=== PATIENT | male | born 1950 | race Caucasian/White ===

== ENCOUNTER → 2020-06-02 | Outpatient (CLI) | payer MEDICARE | LOC: LAB 12:55 | PROVIDERS: ATTEND Nurse Anesthetist, Certified Registered | DX: Z01.812 Encounter for preprocedural laboratory examination (principal); Z85.038 Personal history of other malignant neoplasm of large intestine; Z20.828 Contact with and (suspected) exposure to other viral communicable diseases | CPT/HCPCS: U0003-CS ==

== ENCOUNTER → 2020-06-05 | Day surgery (SDC) | payer MEDICARE ==
[~2020-06-05] MED LIST: IV RINGERS SOLUTION,LACTATED 1,000 ML IV SCH; PROPOFOL 10,000 MCG/ML (20ML) VIAL IV ONE
[2020-06-05 14:40] VITALS: BP 139/89
--- NOTE | 2020-06-10 18:13 | PATHOLOGY ---
[facility] Accession Number: [id number] . 01 Material submitted: . PART A: colon - DESCENDING COLON POLYP. Modifiers: descending PART B: colon - DESCENDING COLON POLYP, HOT SNARE. Modifiers: descending . 01 Clinical history: . HX COLON CA . 02 Diagnosis: A. Colon biopsies, descending colon polyp: - Tubular adenoma. . B. Colon biopsy, descending colon polyp hot snare: - Tubular adenoma. (JPM:[facility] 06/10/2020) [facility] 06/10/2020 0910 Local . 02 Comment: There is no high-grade dysplasia or evidence of malignancy. (JPM:[facility] 06/10/2020) . 02 Electronically signed: . Ziyad Wilder MD, Pathologist NPI- [id number] . 01 Gross description: . A. The specimen is received in formalin, labeled "Carver, Colin, descending colon polyp" and consists of multiple fragments of guillen tissue measuring 1.1 x 0.6 x 0.3 cm in aggregate which are entirely submitted in A1. . B. The specimen is received in formalin, labeled "Socorro, Colin, descending colon" and consists of a fragment of guillen tissue measuring 0.5 x 0.3 cm which is entirely submitted in B1. (SDY; 06/09/2020) SYU/SYU 06/09/2020 1053 Local . 02 Pathologist provided ICD-10: D12.4, Z85.038 . 02 CPT . 614970, [id number] Specimen Comment: A courtesy copy of this report has been sent to [phone], [phone] Specimen Comment: [id number] Specimen Comment: Report sent to / DR HERNANDEZ Performed at: [address] [place], [place] [id number] [facility] [address], [place], [place] [id number] MD Faizan Champion MD Phone: [phone] Performed at: [address] [id number] MD Ziyad Wilder MD Phone: [phone]
== END | disposition home or self-care (01) ==
LOC: SURG 11:41
PROVIDERS: ATTEND Internal Medicine Gastroenterology
DX: Z08 Encounter for follow-up examination after completed treatment for malignant neoplasm (principal); D12.4 Benign neoplasm of descending colon; K64.0 First degree hemorrhoids; K57.30 Diverticulosis of large intestine without perforation or abscess without bleeding; K63.89 Other specified diseases of intestine; M19.90 Unspecified osteoarthritis, unspecified site; Z85.038 Personal history of other malignant neoplasm of large intestine; Z87.891 Personal history of nicotine dependence; Z98.890 Other specified postprocedural states
CPT/HCPCS: 45380; 45381; 45385; 88305; J2704; J7120

== ENCOUNTER 2020-10-13 06:47 | Emergency (ER) | payer MEDICAID, MEDICARE ==
[~2020-10-13] VITALS: Ht 175.3 cm; Wt 84.0 kg
[2020-10-13] MEDS ORDERED: ACETAMINOPHEN/CODEINE 300/30MG TABLET PO ONE (07:00)
--- NOTE | 2020-10-13 07:22 | PHYS DOC ---
General Adult EDM: Chief Complaint: RIB PAIN HPI: HPI: Patient is a 70 male brought in by EMS for right rib pain. Patient initially presented to the [facility] [employer] who called EMS. Patient states he fell 2 days ago on some uneven steps and hit his right ribs. Denies any other injuries. Patient admits to current methamphetamine use, but states he has not used for 3 years prior. Patient states he has been drinking and using drugs since his a few years ago. Denies any fevers, vomiting, diarrhea. Patient has had a cough is nonproductive. Patient denies any medical conditions has had multiple surgeries for injuries in the past. Review of Systems: Review of Systems: All other systems within normal limits except for as noted in the HPI Current Medications: Current Meds: Current Medications Medications (Trade) Dose Ordered Sig/Rhys Start Time Stop Time Status Last Admin Dose Admin Acetaminophen/ Codeine Phosphate (Tylenol #3) 1 tab 1X ONCE 10/13/20 07:00 10/13/20 07:01 DC 10/13/20 07:13 1 TAB Lidocaine (Lidoderm) 1 patch DAILY 10/13/20 09:00 UNV Miscellaneous (Lidoderm Patch Removal) 1 ea QHS 10/13/20 21:00 UNV Sodium Chloride 1,000 ml @ 1,000 mls/hr 1X ONCE 10/13/20 07:30 10/13/20 08:29 UNV Allergies: Allergies: Allergies Coded Allergies Type Severity Reaction Last Updated Verified No Known Drug Allergies 05/27/20 No Physical Exam: PE: Constitutional: Well developed, well nourished, no acute distress, non-toxic appearance. [] HENT: Normocephalic, atraumatic, bilateral external ears normal, nose normal. [] Eyes: PERRLA, conjunctiva normal, no discharge. [] Neck: No rigidity, supple, no stridor. [] Cardiovascular: Regular rate and rhythm, brisk cap refill [] Lungs & Thorax: Non labored symmetric respirations, no tachypnea or respiratory distress. Right lateral and posterior rib cage pain. [] Abdomen: Soft, nondistended. Skin: Warm, dry, no erythema, no rash. Ecchymosis to right flank. [] Back: Unremarkable, no step-offs or deformities Extremities: No deformities, range of motion grossly intact, no lower extremity edema [] Neurologic: Alert and oriented X 3, no focal deficits noted. [] Psychologic: Affect normal, judgement normal, mood normal. [] Current Patient Data: Vital Signs: Vital Signs Date Time Temp Pulse Resp B/P (MAP) Pulse Ox O2 Delivery O2 Flow Rate FiO2 10/13/20 07:13 16 94 EKG: EKG: [] Radiology/Procedures: Radiology/Procedures: CT CHEST_ABDOMEN_ AND PELVIS WITHOUT CONTRAST INDICATION: right rib and flank injury COMPARISON: None. TECHNIQUE: Multiple contiguous axial images were obtained throughout the chest, abdomen, and pelvis without the use of IV contrast. Axial images were reformatted into coronal and sagittal planes. One or more of the following dose reduction techniques were utilized: Automated exposure control (AEC), Adjustment of mA and/or kV according to patient size, Use of iterative reconstruction technique such as ASiR, CT scan done according to ALARA and image gently/image wisely. FINDINGS: Chest Findings: The thyroid is symmetric. There is no axillary, mediastinal, or hilar adenopathy, although evaluation of the ramandeep is limited without IV contrast. The thoracic aorta diameter is normal. The cardiac size is normal. Coronary artery atherosclerotic disease. There is no pericardial effusion. The central airways are patent. Lungs are clear. No pleural abnormality. Abdomen findings: Evaluation of solid abdominal viscera is limited without the use of IV contrast. However, the liver, spleen, pancreas, and adrenal glands are unremarkable. Cholecystectomy. The kidneys are unremarkable. There is no significant mesenteric or retroperitoneal adenopathy identified, though evaluation is limited without intravenous contrast. There is no evidence of free intraperitoneal fluid or pneumoperitoneum. Normal caliber large and small bowel. Sigmoid anastomosis. Pelvis findings: The bladder and distal ureters are unremarkable. There is no significant pelvic ascites. No significant iliac or inguinal adenopathy is identified. Nondisplaced right lateral 10th rib fracture. Degenerative changes of the spine. Bilateral total hip arthroplasties. IMPRESSION: 1. Nondisplaced right lateral 10th rib fracture. 2. No evidence of traumatic mediastinal or lung injury. No abdominal solid organ injury.[] Heart Score: Risk Factors: Risk Factors: DM, Current or recent (<one month) smoker, HTN, HLP, family history of CAD, obesity. Risk Scores: Score 0 - 3: 2.5% MACE over next 6 weeks - Discharge Home Score 4 - 6: 20.3% MACE over next 6 weeks - Admit for Clinical Observation Score 7 - 10: 72.7% MACE over next 6 weeks - Early Invasive Strategies Course & Med Decision Making: Course & Med Decision Making Pertinent Labs and Imaging studies reviewed. (See chart for details) Discussed not using methamphetamines or smoking anything with his rib fracture. Labs unremarkable. [] Gavi Disclaimer: Gavi Disclaimer: This electronic medical record was generated, in whole or in part, using a voice recognition dictation system. Departure Departure: Impression: Primary Impression: Right rib fracture Disposition: 01 DC HOME SELF CARE/HOMELESS Condition: STABLE Referrals: TADEO HERNANDEZ (PCP) Patient Instructions: Incentive Spirometer, Rib Fracture Scripts Lidocaine (Lidocaine) 1 Each Adh..patch 1 EACH TP PRN Q12HR PRN for PAIN for 10 Days, #20 PATCH Prov: WILIAM FRENCH MD 10/13/20 Hydrocodone/Acetaminophen (Hydrocodone-Acetamin 5-325 mg) 1 Each Tablet 1 EACH PO PRN Q6-8HRS PRN for PAIN for 5 Days, #15 TAB Prov: WILIAM FRENCH MD 10/13/20 WILIAM FRENCH MD Oct 13, 2020 07:22
[2020-10-13] MEDS ORDERED: IV NORMAL SALINE 1,000ML 1,000 ML IV ONE (07:30)
--- NOTE | 2020-10-13 07:31 | RAD ---
CT CHEST_ABDOMEN_ AND PELVIS WITHOUT CONTRAST INDICATION: right rib and flank injury COMPARISON: None. TECHNIQUE: Multiple contiguous axial images were obtained throughout the chest, abdomen, and pelvis without the use of IV contrast. Axial images were reformatted into coronal and sagittal planes. One or more of th e following dose reduction techniques were utilized: Automated exposure control (AEC), Adjustment of mA and/or kV according to patient size, Use of iterative reconstruction technique such as ASiR, CT sc an done according to ALARA and image gently/image wisely. FINDINGS: Chest Findings: The thyroid is symmetric. There is no axillary, mediastinal, or hilar adenopathy, although evaluatio n of the ramandeep is limited without IV contrast. The thoracic aorta diameter is normal. The cardiac size is normal. Coronary artery atherosclerotic di sease. There is no pericardial effusion. The central airways are patent. Lungs are clear. No pleural abnormality. Abdomen findings: Evaluation of solid abdominal viscera is limited without the use of IV contrast. However, the liver, spleen, pancreas, and adrenal glands are unremarkable. Cholecystectomy. The kidneys are unremarkable . There is no significant mesenteric or retroperitoneal adenopathy identified, though evaluation is limited without intravenous contrast. There is no evidence of free intraperitoneal fluid or pneumope ritoneum. Normal caliber large and small bowel. Sigmoid anastomosis. Pelvis findings: The bladder and distal ureters are unremarkable. There is no significant pelvic ascites. No signifi cant iliac or inguinal adenopathy is identified. Nondisplaced right lateral 10th rib fracture. Degenerative changes of the spine. Bilateral total hip arthroplasties. IMPRESSION: 1. Nondisplaced right lateral 10th rib fracture. 2. No evidence of traumatic mediastinal or lung injury. No abdominal solid organ injury. Electronically signed by: Mustapha Blood MD (10/13/2020 7:29 AM) [id number]
[2020-10-13 07:32] LABS: BASO % 1 % (0-3); EOS # 0.1 x10^3/uL (0.0-0.7); EOS % 1 % (0-3); HEMATOCRIT 45.6 % (39.0-53.0); HEMOGLOBIN 14.9 g/dL (13.0-17.5); LYMPH % 13 % (24-48); MEAN CORPUSCULAR HEMOGLOBIN 31 pg (25-35); MEAN CORPUSCULAR HGB CONC 33 g/dL (31-37); MEAN CORPUSCULAR VOLUME 94 fL (79-100); MONO # 0.6 x10^3/uL (0.0-1.1); MONO % 8 % (0-9); NEUT # 5.7 x10^3uL (1.8-7.7); NEUT % 77 % (31-73); PLATELET COUNT 144 x10^3/uL (140-400); RED BLOOD COUNT 4.83 x10^6/uL (4.30-5.70); RED CELL DISTRIBUTION WIDTH 13.6 % (11.5-14.5); WHITE BLOOD COUNT 7.4 x10^3/uL (4.0-11.0)
[2020-10-13 07:48] VITALS: BP 118/96
[2020-10-13 07:58] LABS: CALCIUM 9.3 mg/dL (8.5-10.1); CREATININE 1.1 mg/dL (0.7-1.3); GFR 66.2; POTASSIUM 3.4 mmol/L (3.5-5.1)
[2020-10-13 08:04] LABS: ALBUMIN 4.1 g/dL (3.4-5.0); ALBUMIN/GLOBULIN RATIO 1.1 (1.0-1.7); TOTAL BILIRUBIN 2.3 mg/dL (0.2-1.0)
[2020-10-13] MEDS ORDERED: LIDO1ADH63 TP (08:21)
[2020-10-13] MEDS ORDERED: HYDR-2759 PO (08:21)
[2020-10-13] MEDS ORDERED: LIDOCAINE (700MG/PATCH) PATCH. TD ONE (09:00)
[2020-10-13] MEDS ORDERED: PATCH REMOVAL. MC SCH (21:00)
== END 2020-10-13 08:30 | disposition home or self-care (01) ==
LOC: ER 06:47
DX: S22.31XA Fracture of one rib, right side, initial encounter for closed fracture (principal); F15.10 Other stimulant abuse, uncomplicated; W10.8XXA Fall (on) (from) other stairs and steps, initial encounter; Y93.89 Activity, other specified; Y92.89 Other specified places as the place of occurrence of the external cause; Y99.8 Other external cause status
CPT/HCPCS: 36415; 71250; 74176; 80053; 83605; 84484; 85025; 85610; 96360; 99285; G0238; G0480; J7030

== ENCOUNTER 2020-11-05 15:36 | Observation (INO) | payer MEDICARE ==
[~2020-11-05] VITALS: Ht 177.8 cm; Wt 81.0 kg
[~2020-11-05 15:36] MED LIST changes: +HYDR-2759 PO; -IV RINGERS SOLUTION,LACTATED 1,000 ML IV SCH; +LIDO1ADH63 TP; -PROPOFOL 10,000 MCG/ML (20ML) VIAL IV ONE
[2020-11-05] MEDS ORDERED: MVI, ADULT NO.4 WITH VIT K 10 ML, FOLIC ACID INJ 1 MG, THIAMINE INJ 100 MG in IV RINGER... IV ONE (16:00)
[2020-11-05 16:29] LABS: BASO % 1 % (0-3); EOS # 0.1 x10^3/uL (0.0-0.7); EOS % 1 % (0-3); HEMATOCRIT 43.7 % (39.0-53.0); HEMOGLOBIN 14.3 g/dL (13.0-17.5); LYMPH # 1.7 x10^3/uL (1.0-4.8); LYMPH % 39 % (24-48); MEAN CORPUSCULAR HEMOGLOBIN 31 pg (25-35); MEAN CORPUSCULAR HGB CONC 33 g/dL (31-37); MEAN CORPUSCULAR VOLUME 95 fL (79-100); MONO # 0.4 x10^3/uL (0.0-1.1); MONO % 8 % (0-9); NEUT # 2.3 x10^3uL (1.8-7.7); NEUT % 51 % (31-73); PLATELET COUNT 150 x10^3/uL (140-400); RED BLOOD COUNT 4.58 x10^6/uL (4.30-5.70); RED CELL DISTRIBUTION WIDTH 14.6 % (11.5-14.5); WHITE BLOOD COUNT 4.5 x10^3/uL (4.0-11.0)
[2020-11-05 16:31] LABS: GFR 73.9; POTASSIUM 4.1 mmol/L (3.5-5.1)
--- NOTE | 2020-11-05 16:43 | EKG ---
[address] [address] Test Date: 2020-11-05 Test Time: 16:36:04 Pat Name: OTIS FUCHS Department: Room: Gender: M Potato Sorter: DRU : 1950 Requested By: JANNA VACA Order Number: [id number] Reading MD: Measurements Intervals [place] Rate: 68 P: 29 GA: 184 QRS: 62 QRSD: 82 T: 56 QT: 380 QTc: 409 Interpretive Statements SINUS RHYTHM ATRIAL PREMATURE COMPLEX(ES) OTHERWISE NORMAL ECG RI6.02 No previous ECG available for comparison
[2020-11-05] MEDS ORDERED: ZIPRASIDONE IM 20 MG VIAL. IM ONE ×2 (17:25→17:30)
[2020-11-05 17:30] LABS: BACTERIA,URINE 0 /HPF (0-FEW); BILIRUBIN,URINE NEG (NEG); CLARITY,URINE CLEAR; COLOR,URINE YELLOW; GLUCOSE,URINE NEG (NEG); NITRITE,URINE NEG (NEG); RBC,URINE 0 /HPF (0-2); SQUAMOUS EPITHELIAL CELL,UR OCC /LPF; UROBILINOGEN,URINE 0.2 mg/dL (0.2 mg/dL); WBC,URINE 0 /HPF (0-4)
--- NOTE | 2020-11-05 18:14 | RAD ---
Exam: CT head and cervical spine without contrast INDICATION: Altered mental status TECHNIQUE: Sequential axial images through the head and cervical spine were obtained without the admi nistration of IV contrast. Comparisons: None FINDINGS: Head: No focal parenchymal lesion or hemorrhage is identified. There is no midline shift or sulcal effaceme nt. Patchy evidence in the periventricular white matter. No acute vascular territory infarction is identi fied. Moeller-white distinction is preserved. The ventricular system is within normal limits without compression hydrocephalus. The basal cisterns are well maintained. The visualized portions of the paranasal sinuses and mastoid air cells are well-pneumatized. No acute fractures. Cervical spine: Straightening of the cervical spine which may be positional. Vertebral body heights are well-maintain ed. Fracture to the cervical spine is not identified. Degenerative disc disease greatest at C5-C6 and C6-C7. Mild bilateral facet arthropathy is also noted . Visualized paraspinal soft tissues are unremarkable. IMPRESSION: 1. Moderate small vessel ischemic change, technically age indeterminate without recent prior imaging . 2. Negative CT C-spine for acute traumatic injury. Exposure: One or more of the following in the visualized dose reduction techniques were utilized for this examination: 1. Automated exposure control 2. Adjustment of the MA and/or KV according to patient size Use of iterative of reconstructive technique Electronically signed by: Natan Bustillo MD (11/05/2020 6:12 PM) [facility]
--- NOTE | 2020-11-05 18:59 | PHYS DOC ---
Past History Past Medical History: Alcoholism, Cancer Past Surgical History: Cancer Surgery, Other Alcohol Use: Heavy Adult General Chief Complaint Chief Complaint: ALCOHOL INTOXICATION HPI HPI Patient is a 70-year-old male presents emergency department brought here by EMS dinner cook transport. Customer Engagement Analyst states patient was lying on the ground when a co ncerned citizen called them for transport to the emergency department. Patient has strong smell of EtOH, is arousable, ambulates with assistance related to unsteady gait. Patient reports he has been drinking whiskey all day, states he drinks whiskey every day, does "other drugs as well like meth and such "ever since my 3 years ago. Patient denies head pain, chest pain, fever or chills, pain to his extremities. Patient denies any physical complaints or physical concerns. Patient states he wants to go home. Patient states she has had several surgeries, patient is unsure if he takes medications or not, patient does not know if he has any allergies or not. Review of Systems Review of Systems 14 body systems of review of systems have been reviewed. See HPI for pertinent positives and negative responses, otherwise all other systems are negative, nonpertinent or noncontributory. Current Medications Current Medications Current Medications Medications (Trade) Dose Ordered Sig/Rhys Start Time Stop Time Status Last Admin Dose Admin Multivitamins/ Minerals 10 ml/ Folic Acid 1 mg/ Thiamine HCl 100 mg/Lactated Ringer's 1,011.3 ml @ 1,011.3 mls/hr 1X ONCE 11/05/20 16:00 11/05/20 16:59 DC 11/05/20 16:00 1,011.3 MLS/HR Ziprasidone (Geodon Im) 20 mg STK-MED ONCE 11/05/20 17:25 11/05/20 17:25 DC Allergies Allergies Allergies Coded Allergies Type Severity Reaction Last Updated Verified No Known Drug Allergies 05/27/20 No Physical Exam Physical Exam Constitutional: Well developed, well nourished, no acute distress, non-toxic appearance. Strong smell of EtOH, found to half pint bottles of whiskey in pocket. HENT: Normocephalic, atraumatic, bilateral external ears normal, oropharynx moist, no oral exudates, nose normal. Eyes: , EOMI, conjunctiva normal, no discharge. Pupils round, prompt reaction to light stimuli, right pupil 4 mm in diameter round, left pupil 3 mm in diameter round. Neck: Normal range of motion, no tenderness, supple, no stridor. Cardiovascular:Heart rate regular rhythm, no murmur, heart sounds S1-S2. Lungs & Thorax: Bilateral breath sounds clear to auscultation [] Abdomen: Bowel sounds normal, soft, no tenderness, no masses, no pulsatile masses. [] Skin: Warm, dry, no erythema, no rash. [] Back: No tenderness, no CVA tenderness. [] Extremities: No tenderness, no cyanosis, no clubbing, ROM intact, no edema. [] Neurologic: Alert and oriented X 3, normal motor function, normal sensory function, no focal deficits noted. [] Psychologic: Affect normal, judgement normal, mood normal. [] Current Patient Data Vital Signs Vital Signs Date Time Temp Pulse Resp B/P (MAP) Pulse Ox O2 Delivery O2 Flow Rate FiO2 11/05/20 15:36 98.3 77 18 115/67 (83) 92 Room Air Lab Results Laboratory Tests Test 11/05/20 15:58 11/05/20 16:58 White Blood Count 4.5 x10^3/uL (4.0-11.0) Red Blood Count 4.58 x10^6/uL (4.30-5.70) Hemoglobin 14.3 g/dL (13.0-17.5) Hematocrit 43.7 % (39.0-53.0) Mean Corpuscular Volume 95 fL (79-100) Mean Corpuscular Hemoglobin 31 pg (25-35) Mean Corpuscular Hemoglobin Concent 33 g/dL (31-37) Red Cell Distribution Width 14.6 % (11.5-14.5) H Platelet Count 150 x10^3/uL (140-400) Neutrophils (%) (Auto) 51 % (31-73) Lymphocytes (%) (Auto) 39 % (24-48) Monocytes (%) (Auto) 8 % (0-9) Eosinophils (%) (Auto) 1 % (0-3) Basophils (%) (Auto) 1 % (0-3) Neutrophils # (Auto) 2.3 x10^3uL (1.8-7.7) Lymphocytes # (Auto) 1.7 x10^3/uL (1.0-4.8) Monocytes # (Auto) 0.4 x10^3/uL (0.0-1.1) Eosinophils # (Auto) 0.1 x10^3/uL (0.0-0.7) Basophils # (Auto) 0.0 x10^3/uL (0.0-0.2) Sodium Level 141 mmol/L (136-145) Potassium Level 4.1 mmol/L (3.5-5.1) Chloride Level 105 mmol/L (98-107) Carbon Dioxide Level 26 mmol/L (21-32) Anion Gap 10 (6-14) Blood Urea Nitrogen 10 mg/dL (8-26) Creatinine 1.0 mg/dL (0.7-1.3) Estimated GFR (Cockcroft-Gault) 73.9 Glucose Level 107 mg/dL (70-99) H Calcium Level 8.0 mg/dL (8.5-10.1) L Creatine Kinase 71 U/L (39-308) Troponin I Quantitative < 0.017 ng/mL (0-0.055) Ethyl Alcohol Level 425 mg/dL (0-10) *H Urine Collection Type Unknown Urine Color Yellow Urine Clarity Clear Urine pH 5.5 Urine Specific [place] <=1.005 Urine Protein Neg (NEG-TRACE) Urine Glucose (UA) Neg mg/dL (NEG) Urine Ketones (Stick) Neg mg/dL (NEG) Urine Blood Neg (NEG) Urine Nitrite Neg (NEG) Urine Bilirubin Neg (NEG) Urine Urobilinogen Dipstick 0.2 mg/dL (0.2 mg/dL) Urine Leukocyte Esterase Neg (NEG) Urine RBC 0 /HPF (0-2) Urine WBC 0 /HPF (0-4) Urine Squamous Epithelial Cells Occ /LPF Urine Bacteria 0 /HPF (0-FEW) EKG EKG EKG performed at 1636 by house respiratory therapy staff, shows heart rate of 68 bpm, normal sinus rhythm with occasional PAC, NC interval 0.184, QTc interval 0.409, no acute STEMI, no ACS, no acute ischemia appreciated. EKG interpreted by ED attending physician Dr. Marks Radiology/Procedures Radiology/Procedures PATIENT: OTIS FUCHS ACCOUNT: [id number] : 1950 LOCATION: ER AGE: 70 SEX: M EXAM STATUS: REG ER ORD. PHYSICIAN: JANNA VACA APRN REASON: ALTERED MENTAL STATUS PROCEDURE: CT HEAD AND CERVICAL SPINE WO Exam: CT head and cervical spine without contrast INDICATION: Altered mental status TECHNIQUE: Sequential axial images through the head and cervical spine were obtained without the administration of IV contrast. Comparisons: None FINDINGS: Head: No focal parenchymal lesion or hemorrhage is identified. There is no midline shift or sulcal effacement. Patchy evidence in the periventricular white matter. No acute vascular territory infarction is identified. Moeller-white distinction is preserved. The ventricular system is within normal limits without compression hydrocephalus. The basal cisterns are well maintained. The visualized portions of the paranasal sinuses and mastoid air cells are well- pneumatized. No acute fractures. Cervical spine: Straightening of the cervical spine which may be positional. Vertebral body heights are well-maintained. Fracture to the cervical spine is not identified. Degenerative disc disease greatest at C5-C6 and C6-C7. Mild bilateral facet arthropathy is also noted. Visualized paraspinal soft tissues are unremarkable. IMPRESSION: 1. Moderate small vessel ischemic change, technically age indeterminate without recent prior imaging. 2. Negative CT C-spine for acute traumatic injury. Exposure: One or more of the following in the visualized dose reduction techniques were utilized for this examination: 1. Automated exposure control 2. Adjustment of the MA and/or KV according to patient size Use of iterative of reconstructive technique Electronically signed by: Natan Mayo MD (11/05/2020 6:12 PM) [facility] DICTATED AND SIGNED BY: NATAN MAYO MD DATE: 11/05/201800 CC: JANNA VACA APRN; TADEO HERNANDEZ ~MTH0 0 Heart Score C/O Chest Pain: No Risk Factors: Risk Factors: DM, Current or recent (<one month) smoker, HTN, HLP, family history of CAD, obesity. Risk Scores: Risk Factors: DM, Current or recent (<one month) smoker, HTN, HLP, family history of CAD, obesity. Course & Med Decision Making Course & Med Decision Making Pertinent Labs and Imaging studies reviewed. (See chart for details) 70-year-old male, vital signs reviewed, presents emergency department transported by local EMS dinner cook for complaints of lying on the ground outside when a concerned citizen wanted him to be in the emergency department instead. Physical examination consistent with acute intoxication. Will draw EtOH level CBC, BMP with hepatic panel, magnesium, phosphorus, CT head and C-spine without contrast, EKG, troponin-I. IV saline lock, LR banana bag IV. automotive paint technician called and reported a blood alcohol level of 425 directly to me. Patient not following commands, would not lay still for CT head and C-spine, patient became agitated, patient was given 10 mg Geodon IM. Patient now calm and cooperative, CT head and C-spine performed. CT head and C-spine negative for acute process, called and discussed patient case with inpatient management Dr. Cardona who agreed to accept patient for admission to [facility] unit for acute alcohol intoxication with the information he received from me. Magnesium and phosphorus were pending at time of consult with Dr. Cardona. Discussed admission to hospital with patient, patient agreed to this planning. Dr. Cardona has assumed patient care at this time. While patient was in ER awaiting bed placement, magnesium and phosphorus levels returned normal, called and updated Dr. Cardona with results, also discussed patient's low calcium level of 8.0, will give 1000 mg IV and 50 mill D5W to go over 10 minutes. Dragon Disclaimer Dragon Disclaimer This electronic medical record was generated, in whole or in part, using a voice recognition dictation system. Departure Departure: Impression: Primary Impression: Acute alcohol intoxication Disposition: ADMITTED INPT THIS HOSP Admitting Physician: Jaycee Cardona (Admit to the MedSurg unit to Dr. CARDONA for acute alcohol intoxication) Condition: STABLE Referrals: TADEO HERNANDEZ (PCP) Problem Qualifiers Primary Impression: Acute alcohol intoxication Complication of substance-induced condition: uncomplicated Qualified Codes: F10.920 - Alcohol use, unspecified with intoxication, uncomplicated JANNA VACA APRN Nov 05, 2020 18:59
[2020-11-05] MEDS ORDERED: IV DEXTROSE 5 %-0.45 % NACL 1,000 ML IV ONE (19:15)
[2020-11-05] MEDS ORDERED: ONDANSETRON PF 4 MG/2 ML VIAL. IVP PRN (19:15)
[2020-11-05 19:20] LABS: BARBITURATES NEG (NEG); BENZODIAZEPINES NEG (NEG); CANNABINOIDS NEG (NEG); COCAINE NEG (NEG); METHADONE NEG (NEG); OPIATES NEG (NEG); PHENCYCLIDINE NEG (NEG)
[2020-11-05 19:23] LABS: ALBUMIN 3.3 g/dL (3.4-5.0); DIRECT BILIRUBIN 0.1 mg/dL (0.0-0.2); TOTAL BILIRUBIN 0.3 mg/dL (0.2-1.0); TOTAL PROTEIN 6.9 g/dL (6.4-8.2)
[2020-11-05 19:32] LABS: AMPHETAMINE/METHAMPHETAMINE NEG (NEG)
[2020-11-05 19:42] LABS: MAGNESIUM 1.9 mg/dL (1.8-2.4); PHOSPHORUS 2.9 mg/dL (2.6-4.7)
[2020-11-05] MEDS ORDERED: CALCIUM CHLORIDE 1,000 MG in IV NORMAL SALINE 50ML 50 ML IV ONE (20:00)
[2020-11-05 22:29] VITALS: BP 146/84
[2020-11-05] MEDS ORDERED: cloNIDine HCL 0.1 MG TABLET PO PRN (23:15)
[2020-11-05] MEDS ORDERED: chlordiazePOXIDE HCL 25 MG CAPSULE PO PRN ×2 (23:15)
[2020-11-05] MEDS ORDERED: diphenhydrAMINE 50 MG/ML VIAL IVP PRN (23:15)
[2020-11-05] MEDS ORDERED: HALOPERIDOL LACT 5 MG/ML VIAL. IM PRN (23:15)
[2020-11-06 05:10] VITALS: BP 161/74
[2020-11-06 06:13] LABS: BASO % 1 % (0-3); EOS % 1 % (0-3); HEMATOCRIT 42.7 % (39.0-53.0); HEMOGLOBIN 14.2 g/dL (13.0-17.5); LYMPH % 23 % (24-48); MEAN CORPUSCULAR HEMOGLOBIN 32 pg (25-35); MEAN CORPUSCULAR HGB CONC 33 g/dL (31-37); MEAN CORPUSCULAR VOLUME 96 fL (79-100); MONO # 0.4 x10^3/uL (0.0-1.1); MONO % 9 % (0-9); NEUT # 2.9 x10^3uL (1.8-7.7); NEUT % 67 % (31-73); PLATELET COUNT 128 x10^3/uL (140-400); RED BLOOD COUNT 4.45 x10^6/uL (4.30-5.70); RED CELL DISTRIBUTION WIDTH 14.7 % (11.5-14.5); WHITE BLOOD COUNT 4.3 x10^3/uL (4.0-11.0)
[2020-11-06 06:30] LABS: ALBUMIN/GLOBULIN RATIO 0.9 (1.0-1.7); CALCIUM 8.1 mg/dL (8.5-10.1); GFR 73.9; POTASSIUM 3.9 mmol/L (3.5-5.1); TOTAL BILIRUBIN 0.5 mg/dL (0.2-1.0); TOTAL PROTEIN 6.5 g/dL (6.4-8.2)
[2020-11-06] MEDS ORDERED: ACETAMINOPHEN 325 MG TABLET PO PRN (08:45)
[2020-11-06] MEDS ORDERED: MVI, ADULT NO.4 WITH VIT K 10 ML, THIAMINE INJ 100 MG, FOLIC ACID INJ 1 MG in IV NORMAL... IV SCH (09:00)
[2020-11-06 10:30] VITALS: BP 146/88
--- NOTE | 2020-11-06 13:25 | SSS ---
ADMIT DATE: 11/05/2020 HISTORY OF PRESENT ILLNESS: The patient is a 70-year-old male patient who was brought to the Emergency Department by EMS [facility]. They stated that the patient was lying on the ground when a concerned citizen called them for transport to the Emergency Department. The patient has strong smell of alcohol. He is arousable, ambulates with assistance related to unsteady gait. He reportedly has been drinking whiskey all day. He states that he drinks whiskey every day, does other drugs as well like meth and such ever since my 3 years ago. The patient denies head pain, chest pain, fever, chills, pain to his extremities. The patient denied any physical complaints or physical concern and stated that he wants to go home. The patient stated that he has had several surgeries. The patient is unsure if he takes medication or not. The patient does not know if he has any allergies or not. He was extensively investigated in the Emergency Room, has had lab work and imaging studies. His lab work showed that his blood alcohol level was high at 425. However, all other drugs were negative. The patient was admitted for observation as he was extremely intoxicated and very unsteady. PAST MEDICAL HISTORY: Unremarkable. PAST SURGICAL HISTORY: Significant for appendectomy and some form of exploratory surgery for cancer that he cannot recollect accurately. ALLERGIES: He has no known drug allergies, currently on no medication. FAMILY HISTORY: Noncontributory. SOCIAL HISTORY: He is . His about 3 years ago. He does not smoke, but drinks alcohol heavily ever since his . 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 He does use also some other drugs like methamphetamine. REVIEW OF SYSTEMS: As per history of present illness. PHYSICAL EXAMINATION: GENERAL: On arrival to the Emergency Room, he looked well and was clearly in no apparent respiratory distress. No pallor, jaundice, cyanosis or thyromegaly. No jugular venous distention or limb edema. VITAL SIGNS: His heart rate was 77, blood pressure was 115/67, temperature was 98.3, respiratory rate was 18, and oxygen saturation was 92%. HEAD, EYES, EARS, NOSE AND THROAT: Normocephalic, atraumatic. NECK: Supple. HEART: Showed normal first and second heart sounds. No gallop or murmur. CHEST: Clear to auscultation. No crepitation or rhonchi. ABDOMEN: Distended, soft, nontender. NEUROLOGIC: On arrival clearly has a strong smell of alcohol, found to have pint bottles of whiskey in his bucket. He was actually oriented to time, place and person; however, he has unsteady gait according to the ER physician. In the Emergency Room, he has had lab work, which showed that his serum sodium was 141, potassium 4.1, chloride 105, bicarbonate 26, anion gap of 10, BUN 10, creatinine 1, estimated GFR was 74 mL per minute. His glucose 107, calcium was 8. His white cell count was 4500, hemoglobin 14, hematocrit 44, MCV 95, and platelet count of 150,000. Urinalysis was essentially unremarkable. Toxic screen showed blood alcohol level at 425. However, the urine was negative for opiates, methadone, barbiturates, phencyclidine, amphetamine, methamphetamine, benzodiazepine, cocaine, and cannabinoids. ASSESSMENT AND PLAN: The patient was admitted and started on a banana bag and apparently was extremely agitated when he was in the Emergency Room requiring ziprasidone intramuscular. He did very well overnight and when I saw him this afternoon, he was resting, slightly propped up in bed, in no apparent distress, awake, alert. On questioning him, he denied any complaint. Nursing staff did not voice any concern. When I examined him, he looked well and was clearly in no apparent respiratory distress. No pallor, jaundice, cyanosis or thyromegaly. No jugular venous distension. No lower limb edema. His heart rate was 74, blood pressure was 145/88, temperature 98.3, respiratory rate 20, and oxygen saturation was 95% on room air. The rest of clinical exam is stable. His blood alcohol level was less than 10 mg. The patient was discharged home to continue with alcohol intoxication. SONIYA SINGER MD DR: TONNY/khang JOB#: [id number] / [id number]
== END 2020-11-06 13:35 | disposition home or self-care (01) ==
LOC: ER 15:36 → INTOOBSV 19:14 → 1 SOUTH 19:14
PROVIDERS: ADMIT Internal Medicine; ATTEND Internal Medicine
DX: F10.129 Alcohol abuse with intoxication, unspecified (principal); Z90.49 Acquired absence of other specified parts of digestive tract; Z85.9 Personal history of malignant neoplasm, unspecified; Z79.899 Other long term (current) drug therapy; Y90.0 Blood alcohol level of less than 20 mg/100 ml
CPT/HCPCS: 36415; 70450; 72125; 80048; 80053; 80076; 80307; 81001; 82550; 83735; 84100; 84484; 85025; 93005; 96361; 96365; 96366; 96367; 96372; 96375; 96376; 99285; G0378; G0480; J2060; J3486; J7030; J7120; G0379

== ENCOUNTER → 2020-12-25 | Emergency (ER) | payer MEDICARE ==
[~2020-12-25] VITALS: Ht 177.8 cm; Wt 81.0 kg
[~2020-12-25] MED LIST changes: +DIPH,PERTUSS(ACELL),TET VAC/PF 0.5 ML SYRINGE. VAX IM ONE
[2020-12-25 21:17] VITALS: BP 146/90
--- NOTE | 2020-12-25 21:28 | PHYS DOC ---
Past History Past Medical History: Alcoholism, Cancer Past Surgical History: Cancer Surgery, Other Alcohol Use: Heavy Adult General Chief Complaint Chief Complaint: LACERATION/AVULSION HPI HPI Patient is a otherwise healthy 7-year-old male presents to the emergency department, after falling. States he was at home, drinking, slipped and fell. Denies hitting his head, head injuries, syncope, changes in vision, head pain, neck pain, chest pain, shortness of breath, abdominal pain, nausea, vomiting, dysuria, hematuria or blood in the stool. Denies any numbness/weakness/tingling. Denies any trouble ambulating. States he fell, got right back up and went out to sit on his porch to continue drinking. States that his neighbor called EMS and told him that they heard something. States that when the ambulance showed up they did give him a choice to actually come to the emergency department, as he did not really want to come but they stated he working to take you into the emergency department so he came. Patient denies any medical complaints at this time and very politely states really need any work-up and would prefer that she called a cab and let me go home. Review of Systems Review of Systems Review of systems otherwise unremarkable except noted in HPI Allergies Allergies Allergies Coded Allergies Type Severity Reaction Last Updated Verified No Known Drug Allergies 05/27/20 No Physical Exam Physical Exam Constitutional: Well developed, well nourished, no acute distress, non-toxic appearance. [] HENT: Normocephalic, atraumatic, bilateral external ears normal, oropharynx moist, no oral exudates, nose normal. [] Eyes: PERRLA, EOMI, conjunctiva normal, no discharge. [] Neck: Normal range of motion, no tenderness, supple, no stridor. [] Cardiovascular:Heart rate regular rhythm, no murmur [] Lungs & Thorax: Bilateral breath sounds clear to auscultation [] Abdomen: Bowel sounds normal, soft, no tenderness, no masses, no pulsatile masses. [] Skin: Warm, dry, a half a centimeter square abrasion at the ulnar side of the anterior wrist. Neurovascular exam intact.] Back: No tenderness, no CVA tenderness. [] Extremities: No tenderness, no cyanosis, no clubbing, ROM intact, no edema. [] Neurologic: Alert and oriented X 3, normal motor function, normal sensory function, no focal deficits noted, able to sit without issue, able to stand walk without issue. [] Psychologic: Affect normal, judgement normal, mood normal. [] EKG EKG [] Radiology/Procedures Radiology/Procedures [] Heart Score C/O Chest Pain: No Risk Factors: Risk Factors: DM, Current or recent (<one month) smoker, HTN, HLP, family history of CAD, obesity. Risk Scores: Risk Factors: DM, Current or recent (<one month) smoker, HTN, HLP, family history of CAD, obesity. Course & Med Decision Making Course & Med Decision Making Patient is a 7-year-old male presents to the emergency department after falling at home after drinking some beers and cutting his wrist Vital signs not concerning. Physical exam noted above. Patient updated on tetanus as he has a small laceration to the right wrist that needs no repair. Wound washed with sterile water and bandaged. Patient stated that he felt fine and did not realize he did not have to come to the emergency department as he did not really want to come but an ambulance showed up at his house anyway. Patient denies any medical complaints at this time, and asked that we call him a cab so he could go home. Gave strict return precautions to the ED. Patient very grateful, verbalized understanding and agreed with plan of discharge. [] Dragon Disclaimer Dragon Disclaimer This electronic medical record was generated, in whole or in part, using a voice recognition dictation system. Departure Departure: Impression: Primary Impression: Laceration Additional Impression: Fall Disposition: 01 HOME / SELF CARE / HOMELESS Condition: GOOD Referrals: TADEO HERNANDEZ (PCP) Patient Instructions: Fall Prevention and Home Safety, Laceration Care, Adult Additional Instructions: Please read all of the attached information carefully. You are updated on your tetanus vaccination today. Please keep your wound clean, dry and bandaged as discussed and demonstrated. Please be careful drinking alcohol at home as you can cause falls. You were offered a work-up in the emergency department including a head scan, but you politely declined and asked to have a cab call for you so you can go home. Please come back to the emergency department immediately with new or concerning symptoms as discussed. Scripts No Active Prescriptions or Reported Meds Problem Qualifiers CANDACE CONNOR MD December 25, 2020 21:28
== END | disposition home or self-care (01) ==
LOC: ER 21:14
DX: S61.511A Laceration without foreign body of right wrist, initial encounter (principal); W26.8XXA Contact with other sharp object(s), not elsewhere classified, initial encounter; Y93.89 Activity, other specified; Y92.89 Other specified places as the place of occurrence of the external cause; Y99.8 Other external cause status
CPT/HCPCS: 90471; 90715; 99283-25

== ENCOUNTER 2021-03-08 08:06 | Emergency (ER) | payer MEDICARE ==
[~2021-03-08] VITALS: Ht 177.8 cm; Wt 81.0 kg
[~2021-03-08 08:06] MED LIST changes: -DIPH,PERTUSS(ACELL),TET VAC/PF 0.5 ML SYRINGE. VAX IM ONE
[2021-03-08] MEDS ORDERED: AMPICILLIN/SULBACTAM 3 GM in IV NORMAL SALINE 100ML 100 ML IV ONE (08:45)
[2021-03-08] MEDS ORDERED: IOHEXOL 300 MG/ML 75 ML VIAL. IV ONE (09:00)
[2021-03-08] MEDS ORDERED: CONTRAST GIVEN. MC PRN (09:15)
[2021-03-08 09:25] LABS: CALCIUM 8.4 mg/dL (8.5-10.1); GFR 73.9; POTASSIUM 3.3 mmol/L (3.5-5.1)
[2021-03-08 09:26] LABS: BASO % 1 % (0-3); EOS % 0 % (0-3); HEMOGLOBIN 14.1 g/dL (13.0-17.5); LYMPH # 0.9 x10^3/uL (1.0-4.8); LYMPH % 22 % (24-48); MEAN CORPUSCULAR HEMOGLOBIN 35 pg (25-35); MEAN CORPUSCULAR HGB CONC 34 g/dL (31-37); MEAN CORPUSCULAR VOLUME 101 fL (79-100); MONO # 0.5 x10^3/uL (0.0-1.1); MONO % 11 % (0-9); NEUT # 2.9 x10^3uL (1.8-7.7); NEUT % 66 % (31-73); PLATELET COUNT 141 x10^3/uL (140-400); RED BLOOD COUNT 4.08 x10^6/uL (4.30-5.70); RED CELL DISTRIBUTION WIDTH 13.2 % (11.5-14.5); WHITE BLOOD COUNT 4.4 x10^3/uL (4.0-11.0)
[2021-03-08 09:31] LABS: ALBUMIN 3.4 g/dL (3.4-5.0); TOTAL BILIRUBIN 2.1 mg/dL (0.2-1.0); TOTAL PROTEIN 6.8 g/dL (6.4-8.2)
[2021-03-08] MEDS ORDERED: MORPHINE SULFATE 4 MG/ML DISP.SYRIN. IV ONE (09:45)
--- NOTE | 2021-03-08 10:12 | RAD ---
CT NECK SOFT TISSUE WITH IV CONTRAST DATE: 03/08/2021 9:46 AM INDICATION: right maxillary swelling. dental vs sinus. TECHNIQUE: Axial computed tomography of the neck with intravenous contrast according to the standard neck protocol. One or more of the following dose reduction techniques were utilized: Automated expos ure control (AEC), Adjustment of mA and/or kV according to patient size, Use of iterative reconstruct ion technique such as ASiR, CT scan done according to ALARA and image gently/image wisely COMPARISON: None. FINDINGS: Fracture along the anterior and lateral wall of the right maxillary sinus with postsurgical changes o f ORIF, with plate and screws along the inferior orbital rim and the lateral wall. Right facial infla mmatory stranding with 1 cm low-attenuation in the premaxillary soft tissues adjacent to the inferola teral surgical hardware. Moderate right maxillary sinus mucosal thickening. Scattered subcentimeter lymph nodes are seen in the neck. None are pathologically enlarged or abnorma lly enhancing. The parotid, submandibular, and thyroid glands are normal. The muscles of the neck are normal. Carotid artery atherosclerotic disease. The visualized posterior fossa and brain is unremarkable. The visualized orbits and paranasal sinuses are normal. Mild multilevel degenerative disc desiccation. Multilevel spinal canal stenosis secondary to disc pro trusions and marginal osteophytes. Multilevel neural foraminal narrowing secondary to uncovertebral a nd facet arthrosis. The visualized lung apices are clear. IMPRESSION: Fractures involving the right maxillary sinus obrien with postsurgical changes of ORIF. Inflammation i n the surrounding soft tissues with small 1 cm low-attenuation collection adjacent to the inferolater al hardware. These could represent postsurgical change, but cellulitis with small area of phlegmon/ab scess could have a similar appearance. Electronically signed by: Mustapha Blood MD (03/08/2021 10:10 AM) [id number]
--- NOTE | 2021-03-08 10:37 | PHYS DOC ---
Past History Past Medical History: Alcoholism, Cancer Past Surgical History: Cancer Surgery, Other Additional Past Surgical Histo: FACE SURGERY, HERNIA REPAIR Alcohol Use: Occasionally General Adult EDM: Chief Complaint: DENTAL PROBLEM HPI: HPI: Patient is a 70 year old male with history of a right maxillary sinus reconstruction after chainsaw accident in his youth who presents with swelling over his right maxillary sinus starting the past 1 to 2 days. Has pain in this area as well. He does have some dental pain on that right upper maxillary teeth. He has multiple teeth missing and has partial dentures on the upper teeth. No fevers or chills. Review of Systems: Review of Systems: Constitutional: Denies fever or chills Eyes: Denies change in visual acuity HENT: + Facial swelling and dental pain. Respiratory: Denies cough or shortness of breath Cardiovascular: Denies chest pain or edema GI: Denies abdominal pain, nausea, vomiting, bloody stools or diarrhea : Denies dysuria Musculoskeletal: Denies back pain or joint pain Integument: Denies rash Neurologic: Denies headache, focal weakness or sensory changes Endocrine: Denies polyuria or polydipsia Lymphatic: Denies swollen glands Psychiatric: Denies depression or anxiety Family History: Family History: No pertinent family history Current Medications: Current Meds: Current Medications Medications (Trade) Dose Ordered Sig/Rhys Start Time Stop Time Status Last Admin Dose Admin Ampicillin Sodium/ Sulbactam Sodium 3 gm/Sodium Chloride 100 ml @ 200 mls/hr 1X ONCE 03/08/21 08:45 03/08/21 09:14 DC 03/08/21 08:45 200 MLS/HR Info (Do NOT chart on this entry -- for MONITORING) 1 each PRN DAILY PRN 03/08/21 09:15 03/10/21 09:14 Iohexol (Omnipaque 300 Mg/ml) 75 ml 1X ONCE 03/08/21 09:00 03/08/21 09:03 DC 03/08/21 09:40 75 ML Morphine Sulfate (Morphine 4mg Syringe) 4 mg 1X ONCE 03/08/21 09:45 03/08/21 09:47 DC 03/08/21 10:14 4 MG Allergies: Allergies: Allergies Coded Allergies Type Severity Reaction Last Updated Verified No Known Drug Allergies 03/08/21 No Physical Exam: PE: Constitutional: Well developed, well nourished, no acute distress, non-toxic appearance. [] HENT: Edema overlying the right maxillary sinus. Tender in this area. Also tender at the buccal fold on the right. He has poor dentition throughout his mouth. Normocephalic, atraumatic, bilateral external ears normal, oropharynx moist, no oral exudates, nose normal. No evidence of oropharyngeal abscess. No evidence of drainable intraoral abscess. No trismus. No stridor. [] Eyes: PERRLA, EOMI, conjunctiva normal, no discharge. [] Neck: Normal range of motion, no tenderness, supple, no stridor. [] Cardiovascular:Heart rate regular rhythm, no murmur [] Lungs & Thorax: Bilateral breath sounds clear to auscultation [] Abdomen: Bowel sounds normal, soft, no tenderness, no masses, no pulsatile masses. [] Skin: Warm, dry, no erythema, no rash. [] Back: No tenderness, no CVA tenderness. [] Extremities: No tenderness, no cyanosis, no clubbing, ROM intact, no edema. [] Neurologic: Alert and oriented X 3, normal motor function, normal sensory function, no focal deficits noted. [] Psychologic: Affect normal, judgement normal, mood normal. [] Current Patient Data: Labs: Laboratory Tests Test 03/08/21 08:50 White Blood Count 4.4 x10^3/uL (4.0-11.0) Red Blood Count 4.08 x10^6/uL (4.30-5.70) L Hemoglobin 14.1 g/dL (13.0-17.5) Hematocrit 41.0 % (39.0-53.0) Mean Corpuscular Volume 101 fL (79-100) H Mean Corpuscular Hemoglobin 35 pg (25-35) Mean Corpuscular Hemoglobin Concent 34 g/dL (31-37) Red Cell Distribution Width 13.2 % (11.5-14.5) Platelet Count 141 x10^3/uL (140-400) Neutrophils (%) (Auto) 66 % (31-73) Lymphocytes (%) (Auto) 22 % (24-48) L Monocytes (%) (Auto) 11 % (0-9) H Eosinophils (%) (Auto) 0 % (0-3) Basophils (%) (Auto) 1 % (0-3) Neutrophils # (Auto) 2.9 x10^3uL (1.8-7.7) Lymphocytes # (Auto) 0.9 x10^3/uL (1.0-4.8) L Monocytes # (Auto) 0.5 x10^3/uL (0.0-1.1) Eosinophils # (Auto) 0.0 x10^3/uL (0.0-0.7) Basophils # (Auto) 0.0 x10^3/uL (0.0-0.2) Sodium Level 144 mmol/L (136-145) Potassium Level 3.3 mmol/L (3.5-5.1) L Chloride Level 105 mmol/L (98-107) Carbon Dioxide Level 29 mmol/L (21-32) Anion Gap 10 (6-14) Blood Urea Nitrogen 9 mg/dL (8-26) Creatinine 1.0 mg/dL (0.7-1.3) Estimated GFR (Cockcroft-Gault) 73.9 BUN/Creatinine Ratio 9 (6-20) Glucose Level 126 mg/dL (70-99) H Calcium Level 8.4 mg/dL (8.5-10.1) L Total Bilirubin 2.1 mg/dL (0.2-1.0) H Aspartate Amino Transferase (AST) 70 U/L (15-37) H Alanine Aminotransferase (ALT) 120 U/L (16-63) H Alkaline Phosphatase 131 U/L (46-116) H Total Protein 6.8 g/dL (6.4-8.2) Albumin 3.4 g/dL (3.4-5.0) Albumin/Globulin Ratio 1.0 (1.0-1.7) Vital Signs: Vital Signs Date Time Temp Pulse Resp B/P (MAP) Pulse Ox O2 Delivery O2 Flow Rate FiO2 03/08/21 10:14 Room Air 03/08/21 08:14 98.0 89 18 140/81 98 EKG: EKG: NA [] Radiology/Procedures: Impressions: [address] [address] IMAGING REPORT Signed PATIENT: OTIS FUCHS ACCOUNT: [id number] : 1950 LOCATION: ER AGE: 70 SEX: M EXAM STATUS: REG ER ORD. PHYSICIAN: SUDARSHAN NEVES MD REASON: right maxillary swelling. dental vs sinus. CONTRAST ORDERED PROCEDURE: CT SOFT TISSUE NECK W/CONTRAST CT NECK SOFT TISSUE WITH IV CONTRAST DATE: 03/08/2021 9:46 AM INDICATION: right maxillary swelling. dental vs sinus. TECHNIQUE: Axial computed tomography of the neck with intravenous contrast according to the standard neck protocol. One or more of the following dose reduction techniques were utilized: Automated exposure control (AEC), Adjustment of mA and/or kV according to patient size, Use of iterative reconstruction technique such as ASiR, CT scan done according to ALARA and image gently/image wisely COMPARISON: None. FINDINGS: Fracture along the anterior and lateral wall of the right maxillary sinus with postsurgical changes of ORIF, with plate and screws along the inferior orbital rim and the lateral wall. Right facial inflammatory stranding with 1 cm low- attenuation in the premaxillary soft tissues adjacent to the inferolateral surgical hardware. Moderate right maxillary sinus mucosal thickening. Scattered subcentimeter lymph nodes are seen in the neck. None are pathologically enlarged or abnormally enhancing. The parotid, submandibular, and thyroid glands are normal. The muscles of the neck are normal. Carotid artery atherosclerotic disease. The visualized posterior fossa and brain is unremarkable. The visualized orbits and paranasal sinuses are normal. Mild multilevel degenerative disc desiccation. Multilevel spinal canal stenosis secondary to disc protrusions and marginal osteophytes. Multilevel neural foraminal narrowing secondary to uncovertebral and facet arthrosis. The visualized lung apices are clear. IMPRESSION: Fractures involving the right maxillary sinus obrien with postsurgical changes of ORIF. Inflammation in the surrounding soft tissues with small 1 cm low- attenuation collection adjacent to the inferolateral hardware. These could represent postsurgical change, but cellulitis with small area of phlegmon/abscess could have a similar appearance. Electronically signed by: Lamonte Blood MD (03/08/2021 10:10 AM) [id number] DICTATED AND SIGNED BY: LAMONTE BLOOD MD DATE: 03/08/21 0955 CC: SUDARSHAN NEVES MD; PCP,NO ~MTH0 0 Heart Score: C/O Chest Pain: N/A Risk Factors: Risk Factors: DM, Current or recent (<one month) smoker, HTN, HLP, family history of CAD, obesity. Risk Scores: Score 0 - 3: 2.5% MACE over next 6 weeks - Discharge Home Score 4 - 6: 20.3% MACE over next 6 weeks - Admit for Clinical Observation Score 7 - 10: 72.7% MACE over next 6 weeks - Early Invasive Strategies Course & Med Decision Making: Course & Med Decision Making Pertinent Labs and Imaging studies reviewed. (See chart for details) Patient is 70-year-old gentleman with a history of a right maxillary sinus reconstruction after chainsaw injury in his youth who presents with facial swelling overlying that right maxillary sinus. Symptoms started over the last 1 to 2 days. No fevers/chills, or systemic symptoms. He is afebrile and hemodynamically stable on arrival. His white count is normal. It was somewhat unclear whether the sinus or his dentition was a source of this swelling so CT of the face was obtained. Still somewhat unclear, but seems to be more likely related to the sinus surgery. The CT did not show an obvious discrete abscess, but did show inflammation which could be abscess versus phlegmon. He was given IV Unasyn in the emergency department. I discussed the case with Dr. Dial, a local ENT surgeon, who agreed to see the patient in follow-up. We will plan to discharge home with Augmentin for good anaerobic coverage. He does seem to be in a significant amount of pain, so will prescribe a short course of p.o. Dilaudid as well. I discussed with our hospitalist here today, who stated if he failed outpatient management with p.o. pain control he could call our director of emergency nursing here to be set up for a direct admission tomorrow. Case discussed with the patient who is agreeable with this plan. Gavi Disclaimer: Gavi Disclaimer: This electronic medical record was generated, in whole or in part, using a voice recognition dictation system. Departure Departure: Impression: Primary Impression: Facial swelling Disposition: 01 HOME / SELF CARE / HOMELESS Condition: STABLE Referrals: PCP,NO (PCP) Since you do not have a PCP, please call the number for the [facility] at [phone]. Additional Instructions: Looks like you have an infection starting near your sinus on your right side. We will treat this with an antibiotic called Augmentin. Please take as prescribed. For pain tylenol and ibuprofen are best used on a schedule. Please alternate between the two. -Tylenol 1000 mg every 6 hours (do not exceed 4000 mg in one day) -Ibuprofen 400 mg every 6 hours. Take with food. Do not take for more than 1 week. For pain that is not treated by the above you can take Dilaudid 2-4 mg every 4 h ours as needed for pain. This can make you sleepy/drowsy, and addictive medication. Please limit its use to as little as possible. Please call the office of the Ear, Nose, and Throat Surgeon, Dr. Dial at [phone] to schedule an appointment. If you feel like your pain cannot be controlled at home by tomorrow afternoon, you can call our hospital directly at [phone] and asked to speak with the nursing program coordinator to arrange for an admission to the hospital with Dr. Jesse Victor Amoxicillin/Potassium Clav (AUGMENTIN 875-125 TABLET) 1 Each Tablet 1 TAB PO BID for facial infection for 10 Days, #20 TAB 0 Refills Prov: SUDARSHAN NEVES MD 03/08/21 Hydromorphone Hcl (DILAUDID) 2 Mg Tablet 1-2 TAB PO Q6HRS PRN for pain MDD 2 Tablet(s) for 5 Days, #12 TAB 0 Refills Prov: SUDARSHAN NEVES MD 03/08/21 SUDARSHAN NEVES MD Mar 08, 2021 10:37
[2021-03-08] MEDS ORDERED: oxyCODONE IR 5 MG TABLET PO PRN (11:30)
[2021-03-08] MEDS ORDERED: oxyCODONE IR 5 MG TABLET PO ONE (12:30)
[2021-03-08 13:57] VITALS: BP 110/65
[2021-03-08] MEDS ORDERED: HYDR2TAB31 PO (13:58)
[2021-03-08] MEDS ORDERED: AMOX1TAB61 PO (13:58)
== END 2021-03-08 14:13 | disposition home or self-care (01) ==
LOC: ER 08:06
DX: R22.0 Localized swelling, mass and lump, head (principal); K08.89 Other specified disorders of teeth and supporting structures; F10.20 Alcohol dependence, uncomplicated; Y90.9 Presence of alcohol in blood, level not specified
CPT/HCPCS: 36415; 70491; 80053; 85025; 96365; 96375; 99285; J0295; J2270; Q9967